=== PATIENT | female | born 2000 | race African-American/Black ===

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

== ENCOUNTER 2019-08-07 08:08 | Emergency (ER) | payer SELFPAY ==
[2019-08-07] MEDS ORDERED: ONDANSETRON 4 MG TAB.RAPDIS PO ONE (08:56)
[2019-08-07] MEDS ORDERED: METOCLOPRAMIDE HCL 10 MG TABLET PO ONE (09:05)
--- NOTE | 2019-08-07 09:06 | ER Document Report ---
HPI - HPI Time Seen by Provider: 08/07/19 08:56 Pain Level: 1 Notes: Patient is a 19-year-old female with a history of asthma who presents requesting a test. Patient states that she has had 2 home positive test and one negative. Last full menstrual period was a couple months ago. Patient states that on occasion she will have some nausea and dizziness for the past 2 weeks, but is currently asymptomatic. Denies drug allergies. She is able to eat and drink without difficulty. She is urinating normally and having normal bowel movements. No other vaginal discharge, odor, or bleeding. This would be her first . Denies any headache, fever, neck pain, cURI, sore throat, chest pain, palpitations, syncope, cough, shortness of breath, wheeze, dyspnea, abdominal pain, nausea/vomiting/diarrhea, urinary retention, dysuria, hematuria, back pain, or rash. - ROS Systems Reviewed and Negative: Yes All other systems reviewed and negative - NEURO Neurology: REPORTS: Dizzinesss / Vertigo - dizziness. DENIES: Headache, Weakness, Vision blurred - GASTROINTESTINAL Gastrointestinal: REPORTS: Abdominal Pain. DENIES: Black / Bloody Stools - REPRODUCTIVE LMP: May 29 Reproductive: DENIES: : Past Medical History - Social History Smoking Status: Never Smoker Family History: Reviewed & Not Pertinent, Other Patient has suicidal ideation: No Patient has homicidal ideation: No - Past Medical History Cardiac Medical History: Reports: Hx Atrial Fibrillation Pulmonary Medical History: Reports: Hx Asthma Renal/ Medical History: Denies: Hx Peritoneal Dialysis Psychiatric Medical History: Reports: Hx Depression - Immunizations Immunizations up to date: Yes Hx Diphtheria, Pertussis, Tetanus Vaccination: Yes Vertical Provider Document - CONSTITUTIONAL Agree With Documented VS: Yes Notes: PHYSICAL EXAMINATION: GENERAL: Well-appearing, well-nourished and in no acute distress. LUNGS: Breath sounds clear to auscultation bilaterally and equal. No wheezes rales or rhonchi. HEART: Regular rate and rhythm without murmurs, rubs, gallops. ABDOMEN: Soft, nontender, nondistended abdomen. No guarding, no rebound. Normal bowel sounds present. No CVA tenderness bilaterally. NEUROLOGICAL: Normal speech, normal gait. PSYCH: Normal mood, normal affect. SKIN: Warm, Dry, normal turgor, no rashes or lesions noted. - INFECTION CONTROL TRAVEL OUTSIDE OF THE [place] IN LAST 30 DAYS: No Course - Re-evaluation Re-evalutation: 08/07/19 11:20 Patient is an afebrile, well-hydrated, 19-year-old female who presents with a negative test and otherwise a symptomatically vitals are acceptable without significant tachycardia, tachypnea, or hypoxia. PE is otherwise unremarkable. Patient's abdomen is soft nontender throughout. She is nontoxic- appearing and is tolerating p.o. without difficulty. hCG negative. No further work-up warranted. Low suspicion/risk for acute appendicitis, bowel obstruction, acute cholecystitis, acute cholangitis, perforated diverticulitis, incarcerated hernia, pancreatitis, perforated ulcer, peritonitis, sepsis, pelvic inflammatory disease, ectopic , tubo-ovarian abscess, ovarian torsion, or other systemic emergent condition at this time. Patient is aware that her condition can change from initial presentation and she needs to monitor symptoms closely and seek medical attention if any acute changes. Conservative measures otherwise for symptoms. Recheck with your PCM in 3-5 days. Return to the ED with any worsening/concerning symptoms otherwise as reviewed in discharge. Patient is in agreement. - Vital Signs Vital signs: Temp Pulse Resp BP Pulse Ox 97.6 F 20 139/83 H 08/07/19 08:12 08/07/19 08:12 08/07/19 08:12 Discharge - Discharge Clinical Impression: Negative test Condition: Stable Disposition: HOME, SELF-CARE Additional Instructions: Maintain adequate fluid and food intake [place] diet ([employer] Bananas, rice, apples, toast, etc tylenol if needed Monitor for any worsening symptoms Make sure you are staying hydrated enough to urinate and have normal BM's Recheck with your PCM in 3-5 days Return to the ED with any worsening symptoms and/or development of fever, headache, chest pain, palpitations, syncope, shortness of breath, trouble breathing, abdominal pain, n/v/d, blood in stool/urine, weakness, or other worsening symptoms that are concerning to you. Forms: Elevated Blood Pressure Referrals: ZAC DORMAN MD [Primary Care Provider] - Follow up as needed
[2019-08-07 09:47] LABS: APPEARANCE,URINE SLIGHTLY-CLOUDY; BILIRUBIN,URINE NEGATIVE (NEGATIVE); COLOR,URINE YELLOW; GLUCOSE, URINE NEGATIVE (NEGATIVE); KETONES,URINE NEGATIVE (NEGATIVE); PROTEIN,URINE NEGATIVE (NEGATIVE); URINE SPECIFIC GRAVITY 1.024; UROBILINOGEN,URINE NEGATIVE mg/dL (<2.0)
[2019-08-07 11:50] VITALS: BP 138/81
== END 2019-08-07 11:47 | disposition home or self-care (01) ==
LOC: ER 08:08
DX: Z32.02 Encounter for pregnancy test, result negative (principal); R42 Dizziness and giddiness; R11.0 Nausea; I48.91 Unspecified atrial fibrillation
CPT/HCPCS: 36415; 81001; 82962; 84702; 99283

== ENCOUNTER 2019-09-04 10:42 | Emergency (ER) | payer SELFPAY ==
[2019-09-04] MEDS ORDERED: ONDANSETRON 4 MG TAB.RAPDIS PO ONE (12:50)
[2019-09-04] MEDS ORDERED: NORMAL SALINE 1000 ML 1,000 ML IV ONE ×2 (12:51→17:30)
--- NOTE | 2019-09-04 12:52 | ER Document Report ---
ED Medical Screen (RME) - General Chief Complaint: Nausea/Vomiting Stated Complaint: NAUSEA Time Seen by Provider: 09/04/19 12:45 Primary Care Provider: ZAC DORMAN MD [Primary Care Provider] - Follow up as needed TRAVEL OUTSIDE OF THE [place] IN LAST 30 DAYS: No - HPI Notes: 09/04/19 12:51 19 year old female to the ED with C/O generalized abd pain, NVD that began last night. States she has not been able to hold anything down. Denies hematemesis or blood diarrhea. Denies sick contact, recent change in diet, or any Abx use. Admits to subjective fever. I have performed a medical screening exam on the patient and determined the patient will need further management by mainside provider. I have placed initial orders to help expedite his care. - Related Data Allergies/Adverse Reactions: No Known Allergies Allergy (Verified 11/21/17 09:30) Past Medical History - Past Medical History Cardiac Medical History: Reports: Hx Atrial Fibrillation Pulmonary Medical History: Reports: Hx Asthma Renal/ Medical History: Denies: Hx Peritoneal Dialysis Psychiatric Medical History: Reports: Hx Depression - Immunizations Immunizations up to date: Yes Hx Diphtheria, Pertussis, Tetanus Vaccination: Yes Physical Exam - Vital signs Vitals: Temp Pulse Resp BP Pulse Ox 98.7 F 103 H 16 139/77 H 98 09/04/19 11:14 09/04/19 11:14 09/04/19 11:14 09/04/19 11:14 09/04/19 11:14 Course - Vital Signs Vital signs: Temp Pulse Resp BP Pulse Ox 98.7 F 103 H 16 139/77 H 98 09/04/19 12:45 09/04/19 11:14 09/04/19 12:45 09/04/19 11:14 09/04/19 12:45 Doctor's Discharge - Discharge Referrals: ZAC DORMAN MD [Primary Care Provider] - Follow up as needed
[2019-09-04 13:17] LABS: ABSOLUTE LYMPHOCYTES (AUTO) 0.4 10^3/uL (0.5-4.7); ABSOLUTE MONOCYTES (AUTO) 0.3 10^3/uL (0.1-1.4); ABSOLUTE NEUT (AUTO) 7.3 10^3/uL (1.7-8.2); BASOPHILS % (AUTO) 0.2 % (0-2); EOSINOPHILS % (AUTO) 0.2 % (0-6); HEMATOCRIT 38.7 % (36.0-47.0); HEMOGLOBIN 12.5 g/dL (12.0-15.5); LYMPHOCYTES % (AUTO) 5.4 % (13-45); MEAN CORPUSCULAR HEMOGLOBIN 24.9 pg (27.0-33.4); MEAN CORPUSCULAR HGB CONC 32.4 g/dL (32.0-36.0); MEAN CORPUSCULAR VOLUME 77 fl (80-97); MONOCYTES % (AUTO) 3.8 % (3-13); PLATELET COUNT 245 10^3/uL (150-450); RED BLOOD COUNT 5.03 10^6/uL (3.72-5.28); RED CELL DISTRIBUTION WIDTH 15.7 % (11.5-14.0); SEGMENTED NEUTROPHILS % (AUTO) 90.4 % (42-78); TOTAL CELLS COUNTED % (AUTO) 100 %; WHITE BLOOD COUNT 8.1 10^3/uL (4.0-10.5)
[2019-09-04 13:33] LABS: ALBUMIN 4.3 g/dL (3.5-5.0); ALKALINE PHOSPHATASE 69 U/L (38-126); ANION GAP 13 (5-19); ASPARTATE AMINO TRANSFERASE 18 U/L (14-36); BILIRUBIN,DIRECT 0.1 mg/dL (0.0-0.4); BILIRUBIN,TOTAL 0.6 mg/dL (0.2-1.3); BLOOD UREA NITROGEN 10 mg/dL (7-20); CALCIUM 9.3 mg/dL (8.4-10.2); CARBON DIOXIDE 24 mmol/L (22-30); CHLORIDE 102 mmol/L (98-107); GLUCOSE 103 mg/dL (75-110); POTASSIUM 3.7 mmol/L (3.6-5.0); TOTAL PROTEIN 8.2 g/dL (6.3-8.2)
[2019-09-04 13:45] LABS: APPEARANCE,URINE SLIGHTLY-CLOUDY; BILIRUBIN,URINE NEGATIVE (NEGATIVE); COLOR,URINE YELLOW; GLUCOSE, URINE NEGATIVE (NEGATIVE); KETONES,URINE NEGATIVE (NEGATIVE); LEUKOCYTE ESTERASE,URINE NEGATIVE (NEGATIVE); NITRITE,URINE NEGATIVE (NEGATIVE); PROTEIN,URINE 30 mg/dL (NEGATIVE); UROBILINOGEN,URINE NEGATIVE mg/dL (<2.0)
[2019-09-04] MEDS ORDERED: DICYCLOMINE HCL 20 MG TABLET PO ONE (17:30)
--- NOTE | 2019-09-04 18:58 | ER Document Report ---
ED GI/ - General Chief Complaint: Nausea/Vomiting Stated Complaint: NAUSEA Time Seen by Provider: 09/04/19 17:20 Primary Care Provider: ZAC DORMAN MD [Primary Care Provider] - Follow up tomorrow Mode of Arrival: Ambulatory Information source: Patient Notes: Patient presents complaining of nausea vomiting diarrhea that started yesterday. Patient states she is vomited 4 times and had diarrhea x6 episodes. Patient complains of generalized abdominal tenderness and headache. Patient denies any fever or urinary symptoms. TRAVEL OUTSIDE OF THE [place] IN LAST 30 DAYS: No - HPI Patient complains to provider of: Abdominal pain, Diarrhea, Vomiting Onset: Yesterday Timing/Duration: Persistent Quality of pain: Achy Pain Level: 3 Location: Other - Generalized abdomen Vaginal bleeding (Compared to normal period): Similar Associated symptoms: Diarrhea, Nausea, Vomiting. denies: Fever, Urinary hesitancy, Urinary frequency, Urinary retention, Urinary urgency, Vaginal discharge Exacerbated by: Denies Relieved by: Denies Similar symptoms previously: No Recently seen / treated by doctor: No - Related Data Allergies/Adverse Reactions: No Known Allergies Allergy (Verified 11/21/17 09:30) Past Medical History - General Information source: Patient - Social History Smoking Status: Never Smoker Frequency of alcohol use: None Drug Abuse: None Occupation: Foodservice Lives with: Family Family History: Reviewed & Not Pertinent, Other Patient has suicidal ideation: No Patient has homicidal ideation: No Pulmonary Medical History: Reports: Hx Asthma Renal/ Medical History: Denies: Hx Peritoneal Dialysis Psychiatric Medical History: Reports: Hx Depression Surgical Hx: Negative - Immunizations Immunizations up to date: Yes Hx Diphtheria, Pertussis, Tetanus Vaccination: Yes Review of Systems - Review of Systems Constitutional: No symptoms reported. denies: Fever, Recent illness EENT: No symptoms reported Cardiovascular: No symptoms reported. denies: Chest pain Respiratory: No symptoms reported. denies: Cough Gastrointestinal: Abdominal pain, Diarrhea, Nausea, Vomiting Genitourinary: No symptoms reported. denies: Dysuria, Flank pain Female Genitourinary: No symptoms reported Musculoskeletal: No symptoms reported. denies: Neck pain Skin: No symptoms reported. denies: Rash Hematologic/Lymphatic: No symptoms reported Neurological/Psychological: Headaches Physical Exam - Vital signs Vitals: Temp Pulse Resp BP Pulse Ox 98.7 F 103 H 16 139/77 H 98 09/04/19 11:14 09/04/19 11:14 09/04/19 11:14 09/04/19 11:14 09/04/19 11:14 - General General appearance: Appears well, Alert In distress: None - HEENT Head: Normocephalic, Atraumatic Eyes: Normal Conjunctiva: Normal Nasal: Normal Mouth/Lips: Normal Mucous membranes: Normal Neck: Normal, Supple. No: Lymphadenopathy - Respiratory Respiratory status: No respiratory distress Chest status: Nontender Breath sounds: Normal. No: Rales, Rhonchi, Stridor, Wheezing Chest palpation: Normal - Cardiovascular Rhythm: Regular Heart sounds: S1 appreciated, S2 appreciated - Abdominal Inspection: Obese Distension: No distension Bowel sounds: Normal Tenderness: Tender - Diffuse abdominal tenderness, no focal area tenderness, no guarding. No: Guarding Organomegaly: No organomegaly - Back Back: Normal, Nontender. No: CVA tenderness - Extremities General upper extremity: Normal inspection, Nontender, Normal strength General lower extremity: Normal inspection, Nontender, Normal strength - Neurological Neuro grossly intact: Yes Cognition: Normal [place] Coma Scale Eye Opening: Spontaneous [place] Coma Scale Verbal: Oriented [place] Coma Scale Motor: Obeys Commands [place] Coma Scale Total: 15 - Psychological Associated symptoms: Normal affect, Normal mood - Skin Skin Temperature: Warm Skin Moisture: Dry Skin Color: Normal Course - Re-evaluation Re-evalutation: 09/04/19 18:57 On repeat abdominal exam abdomen soft, nontender, no guarding. Patient denies any nausea at this time. Patient feels that pain symptoms have improved after receiving the Bentyl. Will allow IV fluids to infuse and then will plan for discharge at this time. Patient is agreeable with this discharge plan of care. Patient presents with abdominal pain without signs of peritonitis or other life- threatening or serious etiology. Patient appears stable for discharge and has been instructed to return immediately if the symptoms worsen in any way. - Vital Signs Vital signs: Temp Pulse Resp BP Pulse Ox 98.9 F 104 H 16 130/66 H 97 09/04/19 19:34 09/04/19 19:34 09/04/19 12:45 09/04/19 19:34 09/04/19 19:34 - Laboratory Result Diagrams: 09/04/19 12:55 09/04/19 12:55 Laboratory results interpreted by me: 09/04/19 09/04/19 12:55 12:55 MCV 77 L MCH 24.9 L RDW 15.7 H Lymph % (Auto) 5.4 L Absolute Lymphs (auto) 0.4 L Seg Neutrophils % 90.4 H Urine Protein 30 H Urine Blood MODERATE H 09/04/19 18:57 Labs- Entire Visit 09/04/19 09/04/19 09/04/19 12:55 12:55 12:55 WBC 8.1 RBC 5.03 Hgb 12.5 Hct 38.7 MCV 77 L MCH 24.9 L MCHC 32.4 RDW 15.7 H Plt Count 245 Lymph % (Auto) 5.4 L [place] % (Auto) 3.8 Eos % (Auto) 0.2 Baso % (Auto) 0.2 Absolute Neuts (auto) 7.3 Absolute Lymphs (auto) 0.4 L Absolute Monos (auto) 0.3 Absolute Eos (auto) 0.0 Absolute Basos (auto) 0.0 Seg Neutrophils % 90.4 H Sodium 138.7 Potassium 3.7 Chloride 102 Carbon Dioxide 24 Anion Gap 13 BUN 10 Creatinine 0.88 Est GFR ( Amer) > 60 Est GFR (MDRD) Non-Af > 60 Glucose 103 Calcium 9.3 Total Bilirubin 0.6 Direct Bilirubin 0.1 Neonat Total Bilirubin Not Reportable Neonat Direct Bilirubin Not Reportable Neonat Indirect Bili Not Reportable AST 18 ALT 14 Alkaline Phosphatase 69 Total Protein 8.2 Albumin 4.3 Lipase 98.4 Serum HCG, Qual Urine Color YELLOW Urine Appearance SLIGHTLY-CLOUDY Urine pH 7.0 Ur Specific [place] 1.030 Urine Protein 30 H Urine Glucose (UA) NEGATIVE Urine Ketones NEGATIVE Urine Blood MODERATE H Urine Nitrite NEGATIVE Urine Bilirubin NEGATIVE Urine Urobilinogen NEGATIVE Ur Leukocyte Esterase NEGATIVE Urine WBC (Auto) 1 Urine RBC (Auto) 4 Urine Bacteria (Auto) TRACE Squamous Epi Cells Auto 5 Urine Mucus (Auto) FEW Urine Ascorbic Acid NEGATIVE 09/04/19 12:55 WBC RBC Hgb Hct MCV MCH MCHC RDW Plt Count Lymph % (Auto) [place] % (Auto) Eos % (Auto) Baso % (Auto) Absolute Neuts (auto) Absolute Lymphs (auto) Absolute Monos (auto) Absolute Eos (auto) Absolute Basos (auto) Seg Neutrophils % Sodium Potassium Chloride Carbon Dioxide Anion Gap BUN Creatinine Est GFR ( Amer) Est GFR (MDRD) Non-Af Glucose Calcium Total Bilirubin Direct Bilirubin Neonat Total Bilirubin Neonat Direct Bilirubin Neonat Indirect Bili AST ALT Alkaline Phosphatase Total Protein Albumin Lipase Serum HCG, Qual NEGATIVE Urine Color Urine Appearance Urine pH Ur Specific [place] Urine Protein Urine Glucose (UA) Urine Ketones Urine Blood Urine Nitrite Urine Bilirubin Urine Urobilinogen Ur Leukocyte Esterase Urine WBC (Auto) Urine RBC (Auto) Urine Bacteria (Auto) Squamous Epi Cells Auto Urine Mucus (Auto) Urine Ascorbic Acid Discharge - Discharge Clinical Impression: Nausea vomiting and diarrhea Headache Qualifiers: Headache type: unspecified Headache chronicity pattern: unspecified pattern Intractability: not intractable Qualified Code(s): R51 - Headache Condition: Stable Disposition: HOME, SELF-CARE Instructions: Antinausea Medication ([facility]), Antispasmodics ([facility]), Diarrhea, Nonspecific ([facility]), Headache ([facility]), Intravenous (IV) Fluids ([facility]), Vomiting ([facility]) Additional Instructions: Return immediately for any new or worsening symptoms Followup with your primary care provider, call tomorrow to make a followup appointment Increase oral fluids and stay well-hydrated Prescriptions: Dicyclomine HCl [Bentyl 20 mg Tablet] 20 mg PO QID PRN #15 tablet PRN Reason: Promethazine HCl [Phenergan 25 mg Tablet] 25 mg PO Q6H PRN #10 tablet PRN Reason: Forms: Return to Work Referrals: ZAC DORMAN MD [Primary Care Provider] - Follow up tomorrow
[2019-09-04 19:40] VITALS: BP 130/66
== END 2019-09-04 19:40 | disposition home or self-care (01) ==
LOC: ER 10:42
DX: R11.2 Nausea with vomiting, unspecified (principal); R19.7 Diarrhea, unspecified; R51 Headache; R10.817 Generalized abdominal tenderness; R10.84 Generalized abdominal pain; J45.909 Unspecified asthma, uncomplicated
CPT/HCPCS: 99284; 96360; 36415; 83690; 84703; 85025; 80053; 81001; J3490; S0119; J7030